=== PATIENT | female | born 1975 | race Hispanic/Latino ===

== ENCOUNTER 2020-12-07 09:30 | Emergency (ER) | payer OTHER ==
[~2020-12-07] VITALS: Ht 170.2 cm; Wt 108.0 kg
[2020-12-07] MEDS ORDERED: KETOROLAC 15MG/ML VIAL (15MG/ML) ONE (10:11)
[2020-12-07] MEDS ORDERED: HYDROCODONE/ACETAMINOPHEN 5/325 MG TAB ONE (10:11)
[2020-12-07] MEDS ORDERED: HYDROCODONE/ACETAMINOPHEN 5/325 MG TAB PO ONE (10:30)
[2020-12-07] MEDS ORDERED: KETOROLAC 15MG/ML VIAL (15MG/ML) IM ONE (10:30)
[2020-12-07] MEDS ORDERED: IBUP-2070 PO (11:06)
[2020-12-07] MEDS ORDERED: ACET1TAB25 PO (11:06)
[2020-12-07 11:15] VITALS: BP 129/88
== END 2020-12-07 11:26 | disposition home or self-care (01) ==
LOC: EDH 09:30
DX: S33.8XXA Sprain of other parts of lumbar spine and pelvis, initial encounter (principal); E11.9 Type 2 diabetes mellitus without complications; Z79.1 Long term (current) use of non-steroidal anti-inflammatories (NSAID); X58.XXXA Exposure to other specified factors, initial encounter; Y93.89 Activity, other specified; Y92.89 Other specified places as the place of occurrence of the external cause; Y99.8 Other external cause status
CPT/HCPCS: 72220; 96372; 99283; J1885

== ENCOUNTER 2021-05-30 10:09 | Emergency (ER) | payer OTHER ==
[~2021-05-30] VITALS: Ht 170.2 cm; Wt 100.2 kg
[~2021-05-30 10:09] MED LIST: ACET-2079 PO; IBUP-2070 PO
[2021-05-30 10:26] LABS: APPEARANCE,URINE CLEAR (CLEAR); BILIRUBIN,URINE NEGATIVE (NEGATIVE); COLOR,URINE YELLOW (YELLOW); GLUCOSE, URINE (UA) >=1000 mg/dL (NEGATIVE); KETONES,URINE NEGATIVE (NEGATIVE); LEUKOCYTE ESTERASE ,URINE NEGATIVE (NEGATIVE); NITRATE,URINE NEGATIVE (NEGATIVE); OCCULT BLOOD,URINE NEGATIVE (NEGATIVE); PH,URINE 6.5 (5.0-8.0); PROTEIN,URINE NEGATIVE (NEGATIVE); UROBILINOGEN,URINE 0.2 mg/dL (0.2-1.0)
[2021-05-30] MEDS ORDERED: ACETAMINOPHEN 500 MG TABLET PO SCH (10:30)
[2021-05-30 10:44] LABS: WBC,URINE 0-1 /HPF (0-1)
[2021-05-30 10:45] LABS: BACTERIA,URINE Rare /HPF (None Seen); SQUAMOUS EPITHELIAL CELL,UR Rare /HPF (0-2)
[2021-05-30] MEDS ORDERED: MICO200S VG (11:12)
[2021-05-30 11:34] VITALS: BP 132/74
== END 2021-05-30 11:36 | disposition home or self-care (01) ==
LOC: EDH 10:09
DX: B37.3 Candidiasis of vulva and vagina (principal); F41.9 Anxiety disorder, unspecified; E11.9 Type 2 diabetes mellitus without complications; Z98.890 Other specified postprocedural states
CPT/HCPCS: 81001; 81025; 87486; 87797

== ENCOUNTER 2021-07-11 00:08 | Emergency (ER) | payer OTHER ==
[~2021-07-11] VITALS: Ht 167.6 cm; Wt 101.6 kg
[~2021-07-11 00:08] MED LIST changes: +MICO200S VG
[2021-07-11 00:18] VITALS: BP 148/79
[2021-07-11] MEDS ORDERED: CLIN-141 PO (00:44)
[2021-07-11] MEDS ORDERED: TRAM-355 PO (00:44)
[2021-07-11] MEDS ORDERED: IBUP-2070 PO (00:44)
[2021-07-11] MEDS ORDERED: TRAMADOL /APAP 37.5MG/325MG TAB PO STA (00:45)
[2021-07-11] MEDS ORDERED: KETOROLAC 60 MG VIAL (30MG/ML) IM ONE (01:00)
== END 2021-07-11 01:08 | disposition home or self-care (01) ==
LOC: EDH 00:08
DX: K05.10 Chronic gingivitis, plaque induced (principal); E11.9 Type 2 diabetes mellitus without complications; G50.0 Trigeminal neuralgia; Z98.890 Other specified postprocedural states; Z79.899 Other long term (current) drug therapy
CPT/HCPCS: 96372; 99283; J1885

== ENCOUNTER 2021-08-13 00:56 | Emergency (ER) | payer OTHER ==
[~2021-08-13] VITALS: Ht 170.2 cm; Wt 102.5 kg
[~2021-08-13 00:56] MED LIST changes: +CLIN-141 PO; +TRAM-355 PO
[2021-08-13] MEDS ORDERED: ORPHENADRINE CITRATE 30 MG/ML ML IM ONE (04:30)
[2021-08-13] MEDS ORDERED: KETOROLAC 60 MG VIAL (30MG/ML) IM ONE (04:30)
[2021-08-13] MEDS ORDERED: IBUP-2070 PO (07:40)
[2021-08-13] MEDS ORDERED: ACET-2079 PO (07:40)
[2021-08-13 07:51] VITALS: BP 120/70
== END 2021-08-13 07:55 | disposition home or self-care (01) ==
LOC: EDH 00:56
DX: M54.50 Low back pain, unspecified (principal); M48.00 Spinal stenosis, site unspecified; E11.9 Type 2 diabetes mellitus without complications; F17.200 Nicotine dependence, unspecified, uncomplicated; Z79.899 Other long term (current) drug therapy; Z98.890 Other specified postprocedural states
CPT/HCPCS: 72131; 96372 ×2; 99285; J1885; J2360

== ENCOUNTER 2022-06-11 09:09 | Emergency (ER) | payer OTHER ==
[~2022-06-11] VITALS: Ht 12.7 cm; Wt 9.0 kg
[2022-06-11] MEDS ORDERED: ONDANSETRON 4MG INJ IVP ONE (10:00)
[2022-06-11] MEDS ORDERED: MORPHINE 4 MG SYG IVP ONE (10:00)
[2022-06-11 10:12] LABS: BASOPHILS % (AUTO) 0.4 % (0.0-5.0); EOSINOPHILS % (AUTO) 3.8 % (0.0-8.0); HEMATOCRIT 33.1 % (36-48); LYMPHOCYTES % (AUTO) 32.2 % (21.0-51.0); MEAN CORPUSCULAR HEMOGLOBIN 22.1 pg (27.0-33.0); MEAN CORPUSCULAR HGB CONC 30.5 g/dL (32.0-36.0); MEAN CORPUSCULAR VOLUME 72.4 fL (79-99); MONOCYTES % (AUTO) 5.8 % (3.0-13.0); NEUTROPHILS % (AUTO) 57.4 % (40.0-77.0); PLATELET COUNT (AUTO) 340 K/uL (130-400); RED BLOOD CELL COUNT(AUTO) 4.57 MIL/uL (4.00-5.50); RED CELL DISTRIBUTION WIDTH 16.7 % (11.0-15.5); WHITE BLOOD COUNT (AUTO) 8.1 K/uL (4.8-10.8)
[2022-06-11 10:29] LABS: ALBUMIN 3.1 g/dL (3.5-5.0); CREATININE 0.6 mg/dL (0.5-1.5); POTASSIUM 3.4 mmol/L (3.5-5.1); TOTAL PROTEIN, SERUM 6.4 g/dL (6.0-8.3)
[2022-06-11 12:44] LABS: APPEARANCE,URINE CLEAR (CLEAR); BILIRUBIN,URINE NEGATIVE (NEGATIVE); COLOR,URINE YELLOW (YELLOW); GLUCOSE, URINE (UA) 500 mg/dL (NEGATIVE); KETONES,URINE 5 mg/dL (NEGATIVE); LEUKOCYTE ESTERASE ,URINE 25 Leu/uL (NEGATIVE); NITRATE,URINE 2+ (NEGATIVE); OCCULT BLOOD,URINE NEGATIVE (NEGATIVE); PH,URINE 6.5 (5.0-8.0); PROTEIN,URINE NEGATIVE (NEGATIVE); UROBILINOGEN,URINE 0.2 mg/dL (0.2-1.0)
[2022-06-11 12:53] LABS: BACTERIA,URINE MOD /HPF (None Seen); MUCUS,URINE RARE LPF (None Seen); RBC,URINE 0-1 /HPF (0-1); SQUAMOUS EPITHELIAL CELL,UR RARE /HPF (0-2)
[2022-06-11] MEDS ORDERED: CYCLOBENZAPRINE HCL 10 MG TABLET PO ONE (13:30)
[2022-06-11] MEDS ORDERED: CEFTRIAXONE 1G VIAL IVPB ONE (13:30)
[2022-06-11] MEDS ORDERED: PREDNISONE 20 MG TABLET PO ONE (16:30)
[2022-06-11] MEDS ORDERED: CELECOXIB 100 MG CAP PO SCH (16:30)
[2022-06-11] MEDS ORDERED: CELECOXIB 200 MG CAP ONE (16:58)
[2022-06-11] MEDS ORDERED: IBUP-2077 PO (16:59)
[2022-06-11] MEDS ORDERED: CYCL10TA16 PO (16:59)
[2022-06-11 17:07] VITALS: BP 106/44
== END 2022-06-11 17:49 | disposition home or self-care (01) ==
LOC: EDH 09:09
DX: M54.50 Low back pain, unspecified (principal); M51.86 Other intervertebral disc disorders, lumbar region; F17.200 Nicotine dependence, unspecified, uncomplicated; E11.9 Type 2 diabetes mellitus without complications; Z79.899 Other long term (current) drug therapy; Z98.890 Other specified postprocedural states; W18.39XA Other fall on same level, initial encounter; Y93.89 Activity, other specified; Y92.89 Other specified places as the place of occurrence of the external cause; Y99.8 Other external cause status
CPT/HCPCS: 99285; 72148; 96365; 96375; 80053; 85025; 87077; 87088; 87186; 81001; 36415; J0696; J2405; J2270

== ENCOUNTER 2022-07-03 17:26 | Emergency (ER) | payer OTHER ==
[~2022-07-03] VITALS: Ht 170.2 cm; Wt 93.0 kg
[~2022-07-03 17:26] MED LIST changes: +CYCL10TA16 PO; +IBUP-2077 PO
[2022-07-03] MEDS ORDERED: GABA300C PO (21:55)
[2022-07-03] MEDS ORDERED: IBUP-1493 PO (21:55)
[2022-07-03] MEDS ORDERED: CYCL-309 PO (21:55)
[2022-07-03] MEDS ORDERED: MORPHINE 4 MG SYG IM ONE (22:00)
[2022-07-03 23:18] VITALS: BP 124/78
== END 2022-07-03 23:19 | disposition home or self-care (01) ==
LOC: EDH 17:26
DX: M54.32 Sciatica, left side (principal); E11.9 Type 2 diabetes mellitus without complications; Z79.899 Other long term (current) drug therapy; Z98.890 Other specified postprocedural states
CPT/HCPCS: 99284; 72110; 72190; 96372; J2270

== ENCOUNTER 2022-07-26 12:11 | Emergency (ER) | payer OTHER ==
[~2022-07-26] VITALS: Ht 170.2 cm; Wt 94.3 kg
[~2022-07-26 12:11] MED LIST changes: +CYCL-309 PO; +GABA300C PO; +IBUP-1493 PO
[2022-07-26] MEDS ORDERED: LIDOCAINE HCL 1% 20 ML VIAL INJ SCH (13:00)
[2022-07-26] MEDS ORDERED: CEPH500B PO (14:13)
[2022-07-26] MEDS ORDERED: SULF1TAB42 PO (14:13)
[2022-07-26] MEDS ORDERED: CEFTRIAXONE 1G VIAL IM ONE (14:30)
[2022-07-26 14:47] VITALS: BP 123/78
== END 2022-07-26 14:47 | disposition home or self-care (01) ==
LOC: EDH 12:11
DX: L03.012 Cellulitis of left finger (principal); E11.9 Type 2 diabetes mellitus without complications; F17.200 Nicotine dependence, unspecified, uncomplicated; Z79.899 Other long term (current) drug therapy; Z98.890 Other specified postprocedural states
CPT/HCPCS: 99283; 10060; 96372; J0696; 10160